=== PATIENT | male | born 1975 | race Caucasian/White ===

== ENCOUNTER 2019-08-01 12:56 | Inpatient (IN) ==
--- NOTE | 2019-08-01 13:45 | PROVIDER DOCUMENTATION ---
HPI-General Adult - General Chief Complaint: Extremity Pain Stated Complaint: KNOT ON LEFT LEG Time Seen by Provider: 08/01/19 13:20 Source: patient Allergies/Adverse Reactions: Patient Allergies Allergy/AdvReac Type Severity Reaction Status Date / Time No Known Allergies Allergy Verified 08/01/19 13:55 Home Medications: Home Medication List Medication Instructions Recorded Confirmed Last Taken Type Multivitamin [Multivitamins] 1 ea PO DAILY 08/01/19 08/01/19 Unknown History - History of Present Illness -Gen Adult Nature of Presenting Problems: Pt. is 43 yom that presents with c/o left thigh swelling for one week. He reports he has been to an urgent care twice and they told him it was a hematoma. His mother is with him and she states she doesn't believe it is a hematoma and states "I want something done today". Location of Pain/Injury: reports: lower extremity (Left thight). denies: none, head, face, mouth, neck, chest, upper extremity, hand(s), abdomen, back, pelvis, genitalia, feet, upper body, lower body, generalized, other Pain Radiation: reports: no radiation. denies: arm(s), back, buttocks, chest, epigastric, feet, groin, jaw, flank (L), legs (lower), LLQ, LUQ, neck, periumbilical, flank (R), RLQ, RUQ, shoulder(s), scapula, scrotal, sternal notch, suprapubic, legs (upper), urethral, vaginal, other Quality of Pain: reports: cramping, pressure. denies: aching, sharp, tightness Severity: reports: mild. denies: moderate, severe Onset/Duration: reports: gradual, 1 week ago Timing: reports: still present. denies: improving, intermittent, getting worse Context/Activities at Onset: reports: none. denies: light activity, moderate activity, vigorous activity, recent emotional stress, recent physical stress, recent trauma history, possible bad food, cold exposure, eating, out of country travel, rest, sleep, sexual activity, other Modifying Factors: improves with: nothing Associated Symptoms: reports: other (Right thigh swelling). denies: denies symptoms, anxiety, arm pain, back/neck pain, chest pain, constipation, cough, diaphoresis, diarrhea, dizziness, EENT symptoms, fatigue, fever/chills, genitourinary problems, headaches, heartburn, joint pain, loss of appetite, malaise, muscle aches, sinus congestion/drainage, nausea, rash, seizure, shortn ess of breath, sensory/motor loss, pain with inspiration, swelling/mass in abdomen, syncope, vomiting, weakness, trouble walking Similar Symptoms Previously?: Yes Recently seen or treated by another doctor?: No Review of Systems - Adult - REVIEW OF SYSTEMS - ADULT Constitutional: reports: no symptoms reported Eyes: reports: no symptoms reported Ears, Nose, Mouth & Throat: reports: no symptoms reported Cardiovascular: reports: no symptoms reported Respiratory: reports: no symptoms reported Gastrointestinal: reports: no symptoms reported Genitourinary: reports: no symptoms reported Musculoskeletal: reports: no symptoms reported Integumentary: reports: see HPI, other (left thigh swelling) Neurological: reports: no symptoms reported Psychiatric: reports: no symptoms reported Past History - Adult - PAST MEDICAL HISTORY-ADULT Review of Records: reports: Old Records Reviewed, Nursing Assessment Review, Medications Reviewed, Social history reviewed & non-contributory. - IMMUNIZATION STATUS Childhood Immunizations: See Nurse Assessment Flu Vaccine: See Nurse Assessment - FAMILY HISTORY Family History: reviewed, not pertinent - SOCIAL HISTORY Smoking: cigarettes, greater than 1 pack/day Provider spent 3-5 mins advising pt. on dangers of tobacco.: Discussed manners to quit use, and f/u contacts for add'l counseling. Physical Exam-General - PHYSICAL EXAM-ADULT Initial Vital Signs Reviewed: Yes - CONSTITUTIONAL General Appearance: alert, no apparent distress, thin. negative: anxious, obtunded, combative - EYES Eyes: PERRL/EOMI, pink conjunctivae - HEAD, EARS, NOSE, MOUTH & THROAT HENMT: normocephalic/atraumatic - NECK Neck: supple, normal inspection - RESPIRATORY Respiratory: lungs clear, normal breath sounds - CARDIOVASCULAR Cardiovascular: regular rate, rhythm, tachycardia - GASTROINTESTINAL (ABDOMEN) Abdominal Exam: normal bowel sounds, non tender, soft - LYMPHATIC Lymphatic: no adenopathy - MUSCULOSKELETAL Back Exam: normal inspection, no CVA tenderness, no vertebral tenderness Extremity: swelling (Left thigh), tenderness (Left thigh). negative: deformity, erythema, inflammation Peripheral Pulses: radial (R): 2+, radial (L): 2+ - SKIN Integumentary: normal color, normal turgor, warm/dry. negative: cyanosis, ketan dice, rash - NEUROLOGIC Neurologic: grossly normal, no motor/sensory deficits - PSYCHIATRIC Psych/Mental Status: normal mood/affect, normal thought content, normal thought process, oriented x 3. negative: anxious, paranoid, tearful Progress - PLAN OF CARE/RESULTS Progress/Plan/Lab Results: Vital Signs - 8 hr 08/01/19 13:04 Temperature 97.6 F Pulse Rate 123 H Respiratory Rate 16 Blood Pressure 108/61 O2 Sat by Pulse Oximetry 99 Orders Category Date Time Status Saline Loc NOW Care 08/01/19 13:29 Active CBC WITH ELECTRONIC DIFF [HEME] Stat Lab 08/01/19 13:29 Uncollected COMPREHENSIVE METABOLIC PANEL [CHEM] Stat Lab 08/01/19 13:29 Uncollected Laboratory Tests 08/01/19 08/01/19 08/01/19 13:47 13:47 13:47 WBC 9.56 RBC 4.15 L Hgb 12.1 L Hct 37.5 L MCV 90.4 MCH 29.2 MCHC 32.3 L RDW Std Deviation 12.8 Plt Count 277 MPV 10.4 Immature Gran % (Auto) 0.5 Neut % (Auto) 87.5 H Lymph % (Auto) 5.3 L Anson % (Auto) 5.1 Eos % (Auto) 1.3 Baso % (Auto) 0.3 Immature Gran # (Auto) 0.05 H Neut # (Auto) 8.36 H Lymph # (Auto) 0.51 L Anson # (Auto) 0.49 Eos # (Auto) 0.12 Baso # (Auto) 0.03 Sodium 130 L Potassium 4.3 Chloride 93 L Carbon Dioxide 26 Anion Gap 11 BUN 24 H Creatinine 0.7 Estimated GFR/1.73 m2 > 60 BUN/Creatinine Ratio 34 Glucose 78 Calculated Osmolality 264 Calcium 9.6 Total Bilirubin 0.26 AST 32 ALT 37 Alkaline Phosphatase 107 Creatine Kinase 37 Total Protein 7.4 Albumin 3.2 L Globulin 4.2 Albumin/Globulin Ratio 0.8 Dr. Lee at bedside for evaluation. Discussed results and plan of care with patient. Patient agrees with plan and v erbalizes understanding. Result Diagrams: 08/01/19 13:47 08/01/19 13:47 - CT/MRI 1 CT Study: Lower Ext ([facility] - [address], [address], [place] [address] [facility] - [address] [place] [address] Department of Imaging Patient: BRANDT POPE Date: 08/01/19MR#: [id number] : 1975ADM Status: REG [facility]#: [id number] Age/Sex: 43/MRoom/Bed: Loc: ED Ordering Physician: Trevor Mcdermott Family Physician: None,PCP Reason for Procedure: swelling to thigh ____ Signed EXAM: CT EXT LOWER LEFT W/CON INDICATION: swelling to thigh TECHNIQUE: This exam was performed using automated exposure control, adjustment of mA or kV according to patient size, and/or use of iterative reconstruction technique. COMPARISON: None. FINDINGS: There is a large irregular fluid collection in the quadriceps musculature with peripheral enhancement. It measures 8.0 x 5.2 cm axially and up to 19.4 cm craniocaudally. Although a large aging hematoma can exhibit peripheral enhancement, this is suspicious for abscess. No vascular contrast extravasation is appreciated. The femur is intact. No fractures or dislocations are appreciated. IMPRESSION: Very large irregular fluid collection with peripheral enhancement associated with the quadriceps musculature. Although an aging large hematoma is in the differential, I am suspicious that this represents a large abscess. Please correlate clinically. Electronically signed by Sukh Newell 08/01/2019 4:16 PM 08/01/19 1616 Interpreting Physician: Sukh Newell MD Dictated Date/Time: 08/01/19 1610 cc: Trevor Mcdermott; None,PCP) CT Results: See note - CONSULTS/PCP/HOSPITALIST Notification #1 *Consult/PCP/Hospitalist*: Dr. Lee Time Discussed: 16:24 Reason/Comments: Consult Consult Disposition: Will see in ED Departure - Departure Date of Disposition Decision: 08/01/19 Time of Disposition Decision: 13:40 DIAGNOSIS: Abscess of left thigh Disposition: ADMITTED INPATIENT 09 Certified Medical Emergency: Emergent Condition: Stable Referrals and Follow-Ups: None,PCP [Primary Care Provider] - - Critical Care Note This patient required my direct & personal management of CC.: No Attestation - Physician/ CLARIBEL Attestation Patient care was provided by Advanced Practice Provider:: Yes Advanced Practice Provider:: Trevor Mcdermott Advanced Practice Provider documentation review:: The Mid-level provider documentation, treatment plan and medical decision making was reviewed by the physician who agrees with all treatment and medical decision making by the MLP. The physician spent face to face time with patient:: No Advanced Practice Provider documentation review:: Supervising physician onsite and consulted in the evaluation and care of this patient. The physician did not have a face to face encounter with the patient.
[2019-08-01 14:10] LABS: BASO# 0.03 X1000 (0.0-0.2); BASO% 0.3 % (0.0-0.8); EOS# 0.12 X1000 (0.0-0.7); EOS% 1.3 % (0.0-10.0); HEMATOCRIT 37.5 % (42.0-52.0); HEMOGLOBIN 12.1 g/dL (14.0-18.0); IMM GRAN# 0.05 X1000 (0.0-0.04); IMM GRAN% 0.5 % (0.0-0.5); LYMPH# 0.51 X1000 (1.2-3.4); LYMPH% 5.3 % (20.5-51.1); MCH 29.2 PG (27-31); MCHC 32.3 g/dL (33-37); MCV 90.4 FL (81-99); MONO# 0.49 X1000 (0.11-0.59); MONO% 5.1 % (1.7-9.3); MPV 10.4 FL (7.4-10.4); NEUT# 8.36 X1000 (1.4-6.5); NEUT% 87.5 % (42.2-75.2); PLT 277 X1000 (130-400); RBC 4.15 XMIL (4.7-6.1); RDW 12.8 % (11.5-14.5); WBC 9.56 X1000 (4.8-10.8)
[2019-08-01 14:28] LABS: AGAP 11; ALB/GLOB RATIO 0.8; ALBUMIN 3.2 g/dL (3.5-5.0); ALKALINE PHOSPHATASE 107 U/L (32-122); BUN 24 mg/dL (8-22); CALCIUM 9.6 mg/dL (8.8-10.2); CHLORIDE 93 mmol/L (98-107); COSMO 264; CREATININE 0.7 mg/dL (0.7-1.2); ESTIMATED GFR > 60; GLUCOSE 78 mg/dL (70-104); GOT 32 U/L (10-34); GPT 37 U/L (10-44); POTASSIUM 4.3 mmol/L (3.5-5.1); SODIUM 130 mmol/L (136-145); TCO2 26 mmol/L (25-35); TOTAL BILIRUBIN 0.26 mg/dL (0.20-1.00); TOTAL PROTEIN 7.4 g/dL (6.3-8.3)
[2019-08-01] MEDS ORDERED: NS 1,000 ML IV ONE (14:31)
--- NOTE | 2019-08-01 16:18 | Diag Imaging Result Doc PS360 ---
EXAM: CT EXT LOWER LEFT W/CON INDICATION: swelling to thigh TECHNIQUE: This exam was performed using automated exposure control, adjustment of mA or kV according to patient size, and/or use of iterative reconstruction technique. COMPARISON: None. FINDINGS: There is a large irregular fluid collection in the quadriceps musculature with peripheral enhancement. It measures 8.0 x 5.2 cm axially and up to 19.4 cm craniocaudally. Although a large aging hematoma can exhibit peripheral enhancement, this is suspicious for abscess. No vascular contrast extravasation is appreciated. The femur is intact. No fractures or dislocations are appreciated. IMPRESSION: Very large irregular fluid collection with peripheral enhancement associated with the quadriceps musculature. Although an aging large hematoma is in the differential, I am suspicious that this represents a large abscess. Please correlate clinically. Electronically signed by Sukh Newell 08/01/2019 4:16 PM
[2019-08-01] MEDS ORDERED: ZOSYN 3.375 GM in NS 50 ML IV ONE (17:07)
[2019-08-01] MEDS ORDERED: VANCOMYCIN IV PER PHARMACY MISC SCH (17:15)
--- NOTE | 2019-08-01 17:40 | HISTORY AND PHYSICAL ---
CHIEF COMPLAINT: Left thigh swelling. HISTORY OF PRESENT ILLNESS: This is a 43-year-old male with a 1 to 2 week history of progressive left thigh swelling and pain with intermittent fevers as high as 103 at home. He denies any known trauma or previous episodes like this. His pain is mild. It comes and goes. It is worse with movement or direct pressure. No particular relieving factors. He denies chest pain, shortness of breath, abdominal pain, or other systemic complaints other than the intermittent fever. PAST MEDICAL HISTORY: He is a smoker. PAST SURGICAL HISTORY: Tonsillectomy. ALLERGIES: No known drug allergies. HOME MEDICATIONS: None. SOCIAL HISTORY: He smokes a pack of cigarettes per week as well as marijuana. He drinks alcohol occasionally. He denies any IV or other illicit drug use. He does admit to homosexual activity and is unsure of the number of partners he has had in the last few years. His last HIV test was last year and he reports it to be negative. FAMILY HISTORY: Reviewed and noncontributory. REVIEW OF SYSTEMS: Ten systems reviewed and negative except as noted above. PHYSICAL EXAMINATION: VITAL SIGNS: Temperature 98.4 degrees, pulse 97 to 123, respirations 16, blood pressure 105/67. O2 saturation 100%. GENERAL: Thin, somewhat under nourished appearing male in no acute distress. He looks his stated age. HEENT: Normocephalic, atraumatic. Extraocular muscles intact. Pupils equal, round, reactive to light. Sclerae anicteric. The mucous membranes look dry. The tongue may have some leukoplakia on it. NECK: Supple. No thyromegaly. CARDIOVASCULAR: Regular rate and rhythm. RESPIRATORY: Bilateral breath sounds. No work of breathing. LYMPHATICS: No cervical, supraclavicular or periumbilical lymph nodes appreciated. GASTROINTESTINAL: Soft, nontender, nondistended. No organomegaly or mass. EXTREMITIES: No clubbing or cyanosis or peripheral edema. MUSCULOSKELETAL: There is a large fluctuant tender mass consistent with hematoma or abscess of the left anterior mid to distal thigh. It is mildly tender to palpation. No crepitus. Not particularly erythematous, maybe slightly warm compared to the other leg. Otherwise, he moves all extremities equally and well. LABORATORY: White blood cell count 9, hemoglobin 12, hematocrit 37, platelet count 277,000. Electrolytes notable for a sodium 130, chloride 93, BUN 24, creatinine 0.7. LFTs normal. Albumin 3.2. IMAGING: CT of the leg with contrast shows a large irregular fluid collection in the quadriceps muscle with peripheral enhancement measuring 8 x 5 cm axially and up to 19 7 cm cranial caudally suspicious for abscess versus large hematoma. No vascular extravasation. No bony injury. ASSESSMENT AND PLAN: A 43-year-old male with a large fluid collection of the left thigh musculature concerning for abscess. No known etiology. He is noted to have a left shift on his CBC with a history of HIV risk factors. We will recheck his HIV. We are planning drainage in the operating room this evening. We will start prophylactic broad-spectrum antibiotics and obtain cultures of both the blood and the abscess with further recommendations to follow. I discussed this with him and his mother. They understand and agree to proceed. cc: Doug Lee MD
[2019-08-01] MEDS ORDERED: VERSED ONE (17:53)
[2019-08-01] MEDS ORDERED: VANCOMYCIN 2,000 MG in NS 500 ML IV ONE (18:00)
[2019-08-01] MEDS ORDERED: DILAUDID ONE (18:25)
[2019-08-01] MEDS ORDERED: ZOFRAN ONE (18:25)
[2019-08-01] MEDS ORDERED: DIPRIVAN 1% ONE (18:25)
[2019-08-01] MEDS ORDERED: NS 1,000 ML ONE (18:43)
--- NOTE | 2019-08-01 20:10 | OPERATIVE NOTE ---
PROCEDURE DATE: 08/01/2019 PREOPERATIVE DIAGNOSIS: Left thigh deep muscular abscess. POSTOPERATIVE DIAGNOSIS: Left thigh deep muscular abscess. PROCEDURE: Incision and drainage of left thigh deep muscular abscess. SURGEON: Dr. Doug Lee. ANESTHESIA: General. ESTIMATED BLOOD LOSS: 20 mL. COMPLICATIONS: None apparent. SPECIMENS: Pus. FINDINGS: A large pocket of pus was found within the quadriceps muscle of the left anterior distal thigh. TECHNIQUE: He was brought to the operating room and placed supine on the table. General anesthesia was induced. He was prepped and draped in the usual sterile fashion. A vertical incision was made over the fluctuant area of the distal anterior left thigh with a 15 blade. This was carried down through the subcutaneous tissue with cautery, and then through the anterior layer of the quadriceps into the intramuscular fluid collection. A large amount of pus was drained and cultured. I then washed out the wound with Vashe. I then packed with Iodoform gauze. Sterile dressing was applied. There were no apparent complications. cc: Doug Lee MD
[2019-08-02] MEDS: NORCO-7.5 PO PRN ×3 (03:27→20:36)
[2019-08-02] MEDS: VANCOMYCIN 1,600 MG in NS 250 ML IV SCH ×2 (05:21→18:14)
[2019-08-02 07:34] LABS: BASO# 0.01 X1000 (0.0-0.2); BASO% 0.2 % (0.0-0.8); EOS# 0.12 X1000 (0.0-0.7); EOS% 1.9 % (0.0-10.0); HEMATOCRIT 30.8 % (42.0-52.0); IMM GRAN# 0.03 X1000 (0.0-0.04); IMM GRAN% 0.5 % (0.0-0.5); LYMPH# 0.45 X1000 (1.2-3.4); MCH 29.5 PG (27-31); MCHC 32.5 g/dL (33-37); MCV 90.9 FL (81-99); MONO# 0.35 X1000 (0.11-0.59); MONO% 5.5 % (1.7-9.3); MPV 10.2 FL (7.4-10.4); NEUT# 5.43 X1000 (1.4-6.5); NEUT% 84.9 % (42.2-75.2); PLT 218 X1000 (130-400); RBC 3.39 XMIL (4.7-6.1); RDW 12.7 % (11.5-14.5); WBC 6.39 X1000 (4.8-10.8)
[2019-08-02 07:52] LABS: AGAP 7; BUN 14 mg/dL (8-22); CALCIUM 8.4 mg/dL (8.8-10.2); CHLORIDE 101 mmol/L (98-107); COSMO 268; CREATININE 0.6 mg/dL (0.7-1.2); ESTIMATED GFR > 60; GLUCOSE 93 mg/dL (70-104); POTASSIUM 4.6 mmol/L (3.5-5.1); SODIUM 134 mmol/L (136-145); TCO2 26 mmol/L (25-35)
[2019-08-02] MEDS: PERIDEX MT SCH ×2 (08:27→20:36)
[2019-08-02] MEDS: NS 1,000 ML IV SCH ×3 (09:53→09:56)
[2019-08-02 17:45] LABS: HIV ANTIBODY SCREEN SEE COMMENTS
--- NOTE | 2019-08-02 18:36 | GENERAL SURGERY PROGRESS NOTE ---
DATE: 08/02/2019 SUBJECTIVE: The patient is feeling better. No acute events or complaints overnight. OBJECTIVE: Vital Signs: He is afebrile. Vital signs are stable. General: In general, he is awake, alert, and oriented x3. No acute distress. Extremities: The left thigh was examined. The bandage was removed. There was no acute bleeding. His packing was removed and repacked. No signs of erythema or purulent drainage at this time. LABORATORY: White blood cell count 6, hemoglobin 10, hematocrit 30.8 with an 84.9% neutrophils. Electrolytes reviewed and unremarkable. Cultures are pending. ASSESSMENT AND PLAN: A 43-year-old male with left thigh abscess status post incision and drainage. This was a deep intramuscular abscess. We are awaiting culture results. He will be maintained on Zosyn and vancomycin for now. cc: Doug Lee MD
[2019-08-03] MEDS: NORCO-7.5 PO PRN ×4 (01:54→17:46)
[2019-08-03] MEDS: NS 1,000 ML IV SCH ×2 (01:54→16:38)
[2019-08-03] MEDS: VANCOMYCIN 1,600 MG in NS 250 ML IV SCH ×2 (05:50→20:23)
--- NOTE | 2019-08-03 09:24 | GENERAL SURGERY PROGRESS NOTE ---
DATE: 08/03/2019 ADDENDUM: ASSESSMENT AND PLAN: He has a left thigh abscess of unknown etiology. He is status post incision and drainage. We are awaiting culture results. He will remain on vancomycin for now. The Zosyn has been stopped. We will continue wound packing daily, and I have spoken with Dr. Diaz for followup of the confirmation test on human immunodeficiency virus. cc: Doug Lee MD
--- NOTE | 2019-08-03 09:27 | GENERAL SURGERY PROGRESS NOTE ---
DATE: 08/03/2019 SUBJECTIVE: The patient reports no new problems overnight. OBJECTIVE: Vital Signs: He is afebrile. Vital signs are stable. General: He is awake, alert, oriented x3. No acute distress. Extremities: The left thigh was examined. There is mild swelling. No significant erythema. His gauze packing was removed with minimal bloody purulent drainage. He is tender in the wound area as expected. LABORATORY: None today. His HIV rapid test is reportedly positive, but sent out for confirmatory testing. CULTURE RESULTS: The blood cultures are negative. His thigh culture is positive for gram- positive cocci. Speciation is still pending. cc: Doug Lee MD
--- NOTE | 2019-08-03 09:43 | INFECTIOUS DISEASE PROGRESS NO ---
DATE: 08/03/2019 Dr. Lee called me and asked me to see Geoff Woodard. Dr. Lee drained an abscess in his thigh. Dr. Lee sent off a preliminary test for HIV infection which was positive and a more definitive test has been ordered. In addition, I have ordered a CD4 to CD8 ratio and an HIV RNA by PCR test. I asked Dr. Lee to tell the patient to have an appointment with me in 1 week. cc: MD Doug Ragland MD
[2019-08-03] MEDS: PERIDEX MT SCH ×2 (13:46→20:23)
[2019-08-04] MEDS: PERIDEX MT SCH (08:19)
[2019-08-04] MEDS: VANCOMYCIN 1,600 MG in NS 250 ML IV SCH (08:19)
[2019-08-04] MEDS: NORCO-7.5 PO PRN ×2 (09:19→13:50)
[2019-08-04 11:15] VITALS: BP 128/70
--- NOTE | 2019-08-04 18:32 | GENERAL SURGERY PROGRESS NOTE ---
DATE: 08/04/2019 SUBJECTIVE: The patient is doing well. No acute events or complaints overnight. OBJECTIVE: Vital Signs: He is afebrile. His vital signs are stable. General: He is awake, alert, oriented x3. No acute distress. Extremities: The left thigh was examined. There is still some seropurulent drainage, mild bleeding through the dressing. No residual hematoma appreciated. Swelling of the leg is mild. I repacked the wound. LABORATORY DATA: His culture grew out MSSA sensitive to clindamycin. ASSESSMENT AND PLAN: A 43-year-old male with left thigh deep muscular abscess, status post incision and drainage, culture positive for MSSA. We will send him home on clindamycin. He will continue packing the wound daily and follow up with me next week. We are awaiting his confirmatory tests for human immunodeficiency virus indication. cc: Doug Lee MD
--- NOTE | 2019-08-04 20:55 | DISCHARGE SUMMARY ---
ADMISSION DATE: 08/01/2019 DISCHARGE DATE: 08/04/2019 TOOL WORKER: Robert Diaz. ADMITTING DIAGNOSIS: Deep left thigh muscular abscess. POSTOP DIAGNOSIS: Deep left thigh muscular abscess. PROCEDURE: Incision and drainage of left thigh muscular abscess. HOSPITAL COURSE: This 43-year-old male presented with a large abscess of the left thigh of unknown etiology. He underwent incision and drainage in the operating room and a large amount of purulent fluid was drained. Cultures resulted 2 days later in MSSA. He was initially started on vancomycin, Zosyn, then tailored to vancomycin, and then switched to clindamycin at discharge. He did very well and had no problems during his hospital stay. Dr. Diaz was consulted because of a preliminary positive HIV test. Confirmatory results are still pending. Followup appointment with Dr. Lee in one week and with Dr. Diaz in one to two weeks. WOUND CARE: He will pack the wound once daily with iodoform gauze. DISCHARGE MEDICATIONS: Clindamycin 300 mg 1 p.o. q. 6 hours x 7 days and [place] 10 mg 1 p.o. q. 6 hours p.r.n. pain. cc: Doug Lee MD
== END 2019-08-04 14:49 | disposition home or self-care (01) | DRG 502 ==
LOC: ED 12:56 → 4N 12:56 → OBSVTOIN 18:37
PROVIDERS: ADMIT Surgery; ATTEND Surgery